=== PATIENT | female | born 1985 | race Two or more races ===

== ENCOUNTER 2019-11-29 12:08 | Emergency (ER) | payer OTHER ==
[~2019-11-29] VITALS: Ht 162.6 cm; Wt 54.4 kg
[2019-11-29 13:46] VITALS: BP 129/82
== END 2019-11-29 13:47 | disposition home or self-care (01) ==
LOC: ER 12:08
DX: R05 Cough (principal); R19.7 Diarrhea, unspecified; R53.83 Other fatigue; Z20.828 Contact with and (suspected) exposure to other viral communicable diseases
CPT/HCPCS: 99283; 0099U; 36415; 87804; U0002